=== PATIENT | male | born 1950 | race Two or more races ===

== ENCOUNTER → 2024-05-27 | Outpatient (CLI) | payer OTHER, SELFPAY ==
[2024-05-27 11:26] LABS: Basophils % (Auto) 1 % (0-2.5); Eosinophils # (Auto) 0.1 Thou/mm3 (0.0-0.5); Eosinophils % (Auto) 2 % (0-10); Hematocrit 37.5 % (41.0-53.0); Hemoglobin 13.4 g/dL (13.5-16.0); Immature Granulocytes % (Auto) 0 % (0-0); Immature Granulocytes Auto 0.01 Thou/mm3 (0.00-0.00); Lymphocytes # (Auto) 0.8 Thou/mm3 (1.0-4.8); Lymphocytes % (Auto) 16 % (10-50); Mean Corpuscular HGB Conc 35.7 g/dl (31.0-37.0); Mean Corpuscular Hemoglobin 29.6 pg (25.0-35.0); Mean Corpuscular Volume 83 fL (80-100); Monocytes # (Auto) 0.5 Thou/mm3 (0.0-0.8); Monocytes % (Auto) 10 % (0-12); Neutrophils # (Auto) 3.7 Thou/mm3 (1.8-7.7); Neutrophils % (Auto) 71 % (37-80); Nucleated Red Blood Cell % 0 /100 WBC (0); Platelet Count 149 Thou/mm3 (140-440); RDW Standard Deviation 39.8 fL (35.1-43.9); Red Blood Count 4.53 Miln/mm3 (4.50-5.90); White Blood Count 5.2 Thou/mm3 (3.8-10.6)
[2024-05-27 11:57] LABS: Collection Type, Urine Clean Catch; Squamous Epithelial Cell,Urine 0 /hpf (0-5)
[2024-05-27 12:17] LABS: Alanine Aminotransferase 11 U/L (10-49); Albumin/Globulin Ratio 1.8 (1.2-2.2); Alkaline Phosphatase 116 U/L (46-116); Anion Gap 7 (7-16); Aspartate Amino Transferase 13 U/L (0-34); BUN/Creatinine Ratio 23 Ratio (12-20); Bilirubin,Total 0.7 mg/dL (0.3-1.2); Blood Urea Nitrogen 16 mg/dL (9-23); Calcium 9.8 mg/dL (8.3-10.6); Calcium (Corrected) 9.8 mg/dL (8.5-10.1); Carbon Dioxide 26.5 mMol/L (20.0-31.0); Chloride 98 mMol/L (98-107); Creatinine (Component) 0.7 mg/dL (0.6-1.3); Globulin 2.2 gm/dL (2.3-3.5); Glucose 111 mg/dL (74-106); Osmolality,Calculated 264 (275-295); Potassium 4.6 mMol/L (3.4-5.1); Sodium 131 mMol/L (136-145); Thyroid Stimulating Hormone 1.18 uIU/mL (0.55-4.78); Total Protein 6.2 gm/dL (5.7-8.2); eGFR > 60 See Note
[2024-05-27 12:27] LABS: Bilirubin,Urine Negative (Negative); Blood,Urine Negative (Negative); Clarity,Urine Clear (Clear/Hazy); Color,Urine Lt-Yellow (Lt Yel-Yel); Glucose, Urine Negative (Negative); Ketones,Urine Negative (Negative); Leukocyte Esterase,Urine Negative (Negative); Nitrite,Urine Negative (Negative); Protein,Urine Negative (Neg - Trace); RBC,Urine 2 /hpf (0-3); Specific Gravity,Urine 1.013 (1.001-1.035); Urobilinogen,Urine Negative mg/dL (0.0-1.0); WBC,Urine 1 /hpf (0-5)
[2024-05-27 12:33] LABS: Cardiac Risk Estimate 2.3 RATIO (4.0-6.7); Cholesterol 115 mg/dL (132-200); HDL Cholesterol 50 mg/dL (40-60); LDL Cholesterol,Calculated 56 mg/dL (0-130); Triglycerides 44 mg/dL (30-150)
[2024-05-27 12:35] LABS: Glucose Estimated Average 114 mg/dL (80-131); Hemoglobin A1C 5.6 % Hgb (4.8-6.0)
[2024-05-27 12:37] LABS: Creatinine MALB Rnd Ur 44 mg/dL (30-125); Microalbumin, Random Urine < 3 mg/L (0-300)
== END | disposition home or self-care (01) ==
LOC: COPL 10:53
PROVIDERS: PCP Family Medicine; Referring Provider Family Medicine; Visit Provider Family Medicine
DX: Z00.00 Encounter for general adult medical examination without abnormal findings (principal); E11.40 Type 2 diabetes mellitus with diabetic neuropathy, unspecified; E78.2 Mixed hyperlipidemia; E79.0 Hyperuricemia without signs of inflammatory arthritis and tophaceous disease; I10 Essential (primary) hypertension
CPT/HCPCS: 36415; 80053; 80061; 81001; 82043; 82570; 83036; 84443; 84550; 85025

== ENCOUNTER 2024-06-02 09:25 | Day surgery (SDC) | payer OTHER, SELFPAY ==
[2024-06-02] VITALS (11 sets, daily range): BP systolic 118–177; BP diastolic 70–98; PULSE 60–75; RESP 15–21; TEMP 36.2–36.5; O2SAT 97–100; BMI 32.8
[2024-06-02] MEDS: ONDANSETRON INJ 2 MG/ML INJ 2 ML 4 MG IV (11:44)
[2024-06-02] MEDS: DiphenhydrAMINE INJ 50 MG/ML VIAL 25 MG IV (11:45)
[2024-06-02] MEDS: SODIUM CHLORIDE 0.9% 100 ML IV (11:45)
[2024-06-02] MEDS: MIDAZOLAM INJ 1 MG/ML VIAL 2 ML (ASD USE ONLY) 2 MG IV (11:46)
[2024-06-02] MEDS: fentaNYL CIT INJ 50 mCg/ML AMP 2ML (ASD USE ONLY) IV (11:46)
--- NOTE | 2024-06-02 11:50 | SUR.PHASEII ---
1158 patient is awake, alert, breathing unlabored, s/p EGD by Dr. Moe, report received from Anni GOLDSTEIN
--- NOTE | 2024-06-02 12:47 | SUR.PHASEII ---
1247 patient is awake, alert, breathing unlabored, able to tolerate water with no nausea, vomiting or difficulty swallowing, meets discharge criteria, discharge instructions given to patient and sister Nga. Patient discharged home in wheelchair with all belongings.
== END 2024-06-02 12:47 | disposition home or self-care (01) ==
PROVIDERS: PCP Family Medicine; Referring Provider Specialist; Visit Provider Specialist
PROC: (CPT 43239; principal; 2024-06-02 11:00)
DX: K22.11 Ulcer of esophagus with bleeding (principal); K22.2 Esophageal obstruction; K29.71 Gastritis, unspecified, with bleeding; K31.A0 Gastric intestinal metaplasia, unspecified; K22.70 Barrett's esophagus without dysplasia; K31.89 Other diseases of stomach and duodenum
CPT/HCPCS: 43248; 43239; C1769; J1200; J2250; J2405; J3010; J7050

== ENCOUNTER → 2024-11-25 | Outpatient (CLI) | payer OTHER, SELFPAY ==
[2024-11-25 09:23] LABS: Glucose Estimated Average 128 mg/dL (80-131); Hemoglobin A1C 6.1 % Hgb (4.8-6.0)
[2024-11-25 09:37] LABS: Alanine Aminotransferase 11 U/L (10-49); Albumin, Serum 3.9 gm/dL (3.4-4.8); Albumin/Globulin Ratio 1.6 (1.2-2.2); Alkaline Phosphatase 101 U/L (46-116); Anion Gap 9 (7-16); Aspartate Amino Transferase 15 U/L (0-34); BUN/Creatinine Ratio 16 Ratio (12-20); Bilirubin,Total 0.7 mg/dL (0.3-1.2); Blood Urea Nitrogen 13 mg/dL (9-23); Calcium 9.0 mg/dL (8.3-10.6); Calcium (Corrected) 9.1 mg/dL (8.5-10.1); Carbon Dioxide 27.3 mMol/L (20.0-31.0); Cardiac Risk Estimate 2.9 RATIO (4.0-6.7); Chloride 97 mMol/L (98-107); Cholesterol 118 mg/dL (132-200); Creatinine (Component) 0.8 mg/dL (0.6-1.3); Globulin 2.5 gm/dL (2.3-3.5); Glucose 110 mg/dL (74-106); HDL Cholesterol 41 mg/dL (40-60); LDL Cholesterol,Calculated 65 mg/dL (0-130); Osmolality,Calculated 267 (275-295); Potassium 4.4 mMol/L (3.4-5.1); Sodium 133 mMol/L (136-145); Thyroid Stimulating Hormone 2.97 uIU/mL (0.55-4.78); Total Protein 6.4 gm/dL (5.7-8.2); Triglycerides 59 mg/dL (30-150); eGFR > 60 See Note
[2024-11-25 10:36] LABS: Creatinine MALB Rnd Ur 37 mg/dL (30-125); Microalbumin, Random Urine < 3 mg/L (0-300)
== END | disposition home or self-care (01) ==
LOC: COPL 08:33
PROVIDERS: PCP Family Medicine; Referring Provider Family Medicine; Visit Provider Family Medicine
DX: E11.40 Type 2 diabetes mellitus with diabetic neuropathy, unspecified (principal); E78.2 Mixed hyperlipidemia; I10 Essential (primary) hypertension; E03.9 Hypothyroidism, unspecified
CPT/HCPCS: 36415; 80053; 80061; 82043; 82570; 83036; 84443

== ENCOUNTER → 2025-02-08 | Outpatient (CLI) | payer OTHER, SELFPAY ==
--- NOTE | 2025-02-08 12:20 | XR_ITS ---
Examination: Bone densitometry Date and time of exam: February 08, 2025, 1210 hours INDICATIONS: 74-year-old male with diagnosis age-related osteoporosis Technique: Lumbar spine and hip total bone mineralization values of an calculated. Peak reference and age match control results have been displayed. Findings: Lumbar spine total bone mineralization is 1.596 gm/cm2. This is 4.6 standard deviations above peak reference. This is 5.6 standard deviations above age-matched controls. Hip total bone mineralization is 0.931 gm/cm2 This is 0.9 standard deviations below peak reference. This is 0.2 standard deviations below age-matched controls Impression: There is normal mineralization based on lumbar spine measurements. There is normal mineralization based on hip measurements Lumbar mineralization is increased 1.6% compared with February 07, 2023. Hip mineralization is decreased 4.4% compared with February 07, 2023
== END | disposition home or self-care (01) ==
LOC: CDIM 11:39
PROVIDERS: Referring Provider Family Medicine; Visit Provider Family Medicine
DX: M85.89 Other specified disorders of bone density and structure, multiple sites (principal)
CPT/HCPCS: 77080

== ENCOUNTER → 2025-04-18 | Outpatient (CLI) | payer OTHER, SELFPAY ==
[2025-04-18 13:25] LABS: Glucose Estimated Average 128 mg/dL (80-131); Hemoglobin A1C 6.1 % Hgb (4.8-6.0)
[2025-04-18 13:29] LABS: Alanine Aminotransferase 21 U/L (10-49); Albumin, Serum 4.4 gm/dL (3.4-4.8); Albumin/Globulin Ratio 1.8 (1.2-2.2); Alkaline Phosphatase 109 U/L (46-116); Anion Gap 7 (7-16); Aspartate Amino Transferase 25 U/L (0-34); BUN/Creatinine Ratio 19 Ratio (12-20); Bilirubin,Total 0.8 mg/dL (0.3-1.2); Blood Urea Nitrogen 13 mg/dL (9-23); Calcium 9.4 mg/dL (8.3-10.6); Calcium (Corrected) 9.4 mg/dL (8.5-10.1); Carbon Dioxide 28.7 mMol/L (20.0-31.0); Cardiac Risk Estimate 1.9 RATIO (4.0-6.7); Chloride 93 mMol/L (98-107); Cholesterol 111 mg/dL (132-200); Creatinine (Component) 0.7 mg/dL (0.6-1.3); Globulin 2.5 gm/dL (2.3-3.5); Glucose 103 mg/dL (74-106); HDL Cholesterol 59 mg/dL (40-60); LDL Cholesterol,Calculated 45 mg/dL (0-130); Osmolality,Calculated 259 (275-295); Potassium 4.6 mMol/L (3.4-5.1); Sodium 129 mMol/L (136-145); Total Protein 6.9 gm/dL (5.7-8.2); Triglycerides 37 mg/dL (30-150); eGFR > 60 See Note
== END | disposition home or self-care (01) ==
LOC: COPL 11:48
PROVIDERS: PCP Family Medicine; Referring Provider Family Medicine; Visit Provider Family Medicine
DX: E11.65 Type 2 diabetes mellitus with hyperglycemia (principal); I10 Essential (primary) hypertension
CPT/HCPCS: 36415; 80053; 80061; 83036